=== PATIENT | female | born 1955 | race Caucasian/White ===

== ENCOUNTER 2023-10-10 06:13 | Inpatient (IN) ==
--- NOTE | 2023-09-20 09:25 | PAT Medication Instructions ---
Medication Instructions Date of Service September 20, 2023 Home Medications alprazolam 0.25 mg tablet 0.25 mg PO HS ascorbic acid (vitamin C) 500 mg tablet (Vitamin C) 500 mg PO QAM atorvastatin 10 mg tablet 10 mg PO HS calcium carbonate 600 mg calcium (1,500 mg) tablet (Calcium) 600 mg PO QAM magnesium 500 mg tablet 500 mg PO QAM multivitamin 1 tab PO QAM paroxetine HCl 40 mg tablet 40 mg PO HS trazodone 100 mg tablet 100 mg PO HS DO NOT take the morning of surgery ascorbic acid (vitamin C) 500 mg tablet (Vitamin C) 500 mg PO QAM calcium carbonate 600 mg calcium (1,500 mg) tablet (Calcium) 600 mg PO QAM magnesium 500 mg tablet 500 mg PO QAM multivitamin 1 tab PO QAM Take evening before surgery alprazolam 0.25 mg tablet 0.25 mg PO HS atorvastatin 10 mg tablet 10 mg PO HS paroxetine HCl 40 mg tablet 40 mg PO HS trazodone 100 mg tablet 100 mg PO HS Other Notes If you have any questions please call us at [phone] or [phone] or [phone] or [phone]
--- NOTE | 2023-09-20 15:04 | Anesthesiology Consultation ---
Date of Service September 20, 2023 Assessment & Plan (1) Encounter for pre-operative examination: - will need full 01/16/[address] report. Awaiting surgeon ordered medical clearance. Chart Review Chart Review: Pending: Refer to Additional Notes / Consult section and Patient seen in Pre Admission Testing Teaching & Discussion Pre-Anesthesia Teaching/Discussion Notes: Instructed NPO after midnight before surgery, except medications with 15 cc of water. Medication instructions provided according to the PAT guidelines. History Surgery Operation Date: 10/10/23 07:45 Proposed Procedures p L2-L5 Decompression and Fusion, Spinal Cord Monitoring - Brannon Vincent DO Height/Weight Height: 5 ft 1 in Weight: 65 kg Allergies Allergy/AdvReac Type Severity Reaction Status Date / Time No Known Allergies Allergy Verified 09/20/23 09:00 Medications Home Medications Medication Instructions Recorded Confirmed Last Taken alprazolam 0.25 mg tablet 0.25 mg PO 09/20/23 09/20/23 Unknown ascorbic acid (vitamin C) 500 mg 500 mg PO [facility] 09/20/23 09/20/23 Unknown tablet (Vitamin C) atorvastatin 10 mg tablet 10 mg PO 09/20/23 09/20/23 Unknown calcium carbonate 600 mg calcium 600 mg PO [facility] 09/20/23 09/20/23 Unknown (1,500 mg) tablet (Calcium) magnesium 500 mg tablet 500 mg PO [facility] 09/20/23 09/20/23 Unknown multivitamin 1 tab PO [facility] 09/20/23 09/20/23 Unknown paroxetine HCl 40 mg tablet 40 mg PO 09/20/23 09/20/23 Unknown trazodone 100 mg tablet 100 mg PO 09/20/23 09/20/23 Unknown Past Medical History Medical History (Updated 09/20/23 @ 16:25 by Angeline Bruce PA-C) Pulmonary hypertension PASP 30-40 mmHg Nausea and vomiting after administration of anesthetic agent denies needing scop patach Hx of bladder cancer 06/2022, sx only History of COVID-19 04/2022, tested walk in clinic, not hosp; sinus infection>no residual symptoms Hyperlipidemia Anxiety and depression Patient denies h/o stroke, seizures, heart attack, heart failure, DM, HTN, blood clots/DVTs or blood transfusions. Exercise / Class Metabolic Activity II 4-5 Yardwork/Stairs/Walk up hill (denies chest discomfort or shortness of breath with 1 FOS) Past Surgical History Surgical History (Updated 09/20/23 @ 15:29 by Angeline Bruce PA-C) History of appendectomy History of lumpectomy of left breast x2>both times benign History of laparotomy x4, for ruptured ectopic -removed appendix with 1 sx. Hx of colonoscopy History of transurethral resection of bladder tumor (TURBT) 06/2022 Past Anesthesia History No Hx of Anesthesia Complications and No Family Hx of Anesthesia Complications History of PONV No Hx of Motion Sickness and History of PONV (denies needing scop patch) Social History Smoking Status: Former smoker Do You Dip or Chew Tobacco: No Smoking End Date: years ago Hx Alcohol Use: Yes Alcohol type: beer alcohol intake frequency: holidays/special occasions only Hx Substance Use: No substance use type: does not use Review of Systems Snoring, denies witnessed apneas. Patient denies chest pain, shortness of breath, dyspnea on exertion, fever, chills, cough, wheezing, or palpitations. Physical Exam Vital Signs Vitals BP 113/73 P 59 TEMP 98.7 SP02 96% on RA RESP 17 Physical Patient resting comfortably in chair in no acute distress, alert and oriented, responding appropriately throughout visit Full cervical extension range of motion without pain TMD 3.5 finger breadths Mallampati Score 2 Dentition: two crowns, denies chipped or loose teeth, caps, implants or bridges Lungs: normal respiratory effort. Good air movement, clear throughout to auscultation, no adventitious breath sounds Cardiac: regular rate and rhythm, no murmurs noted Carotid arteries: negative bruit bilat Lab Results Anesthesia Preop Results Results Anesthesia Widget: WBC 5.02 K/ul (4.8-10.8) 09/20/23 Hgb 13.0 g/dl (12.0-16.0) 09/20/23 Hct 38.8 % (37.0-47.0) 09/20/23 Plt 226 K/uL (130-400) 09/20/23 Na 137 mmol/L (136-145) 09/20/23 K 3.8 mmol/L (3.5-5.1) 09/20/23 Cl 105 mmol/L (98-107) 09/20/23 CO2 27 mmol/L (21-32) 09/20/23 BUN 18 mg/dl (6-23) 09/20/23 Creat 0.71 mg/dl (0.6-1.2) 09/20/23 Glucose Level 98 mg/dl (70-99(Fasting)) 09/20/23 PT 10.3 Seconds (9.0-12.0) 09/20/23 PTT 27 Seconds (21-31) 09/20/23 INR 0.9 (0.9-1.1) 09/20/23 Urine Color Yellow 09/20/23 Urine Appearance Clear (Clear) 09/20/23 Urine pH 6.5 (4.5-7.5) 09/20/23 Urine Specific [place] 1.016 (1.000-1.030) 09/20/23 Urine Protein Negative (Negative) 09/20/23 Urine Glucose (UA) Negative (Negative) 09/20/23 Urine Ketones Negative (Negative) 09/20/23 Urine Blood 2+ (Negative) H 09/20/23 Urine Nitrite Negative (Negative) 09/20/23 Urine Bilirubin Negative (Negative) 09/20/23 Urine Urobilinogen Negative (Negative) 09/20/23 Urine Leukocyte Esterase Negative (Negative) 09/20/23 Urine WBC (Auto) 0 /hpf (0-5) 09/20/23 Urine RBC (Auto) 10-30 /hpf (0-4) H 09/20/23 Urine Hyaline Casts (Auto) 0 /lpf (0-5) 09/20/23 Urine Epithelial Cells (Auto) 0-5 /lpf (0-5) 09/20/23 Urine Bacteria (Auto) Negative (Negative) 09/20/23 Blood Type B Positive 09/20/23 Antibody Screen NEGATIVE 09/20/23 Testing Electrocardiogram Date: 10/31/22 Sinus bradycardia, rate 57 bpm Echocardiogram Date: 11/14/22 EF 55% Normal LV wall motion Mild cLVH Mild mitral regurgitation Grade I diastolic dysfunction Elevated PASP at 30-40 mmHG Stress Test Date: 11/15/22 Exercise MPHR 98% METS 7 Negative exercise stress test for ischemia
[~2023-10-10 06:13] MED LIST: ACETAMINOPHEN 500 MG TAB PO SCH; CeleBREX 200 MG CAP PO SCH; GABAPENTIN 300 MG CAP PO SCH; LR 15ML/HR IV SCH; LR 60ML/HR IV SCH; ceFAZolin 2000MG 2,000 MG/15 ML SYR IV SCH
[2023-10-10] MEDS ORDERED: BUPIVACAINE/EPINEPHRINE 0.5% MPF 1:200,000 30 ML VIAL ONE (07:05)
[2023-10-10] MEDS ORDERED: ceFAZolin 330 MG/ML 1 GM VIAL ONE (07:05)
[2023-10-10] MEDS ORDERED: MIDAZOLAM HCL 1 MG/ML 2ML VIAL ONE (07:07)
[2023-10-10] MEDS ORDERED: fentaNYL citrate PF 100 MCG/2 ML VIAL ONE ×2 (07:07→08:44)
[2023-10-10] MEDS ORDERED: LIDOCAINE 2% 2 ML VIAL/AMP(20MG/ML) INFIL ONE (07:08)
[2023-10-10] MEDS ORDERED: ONDANSETRON INJ 2 MG/ML 2 ML VIAL ONE (07:08)
[2023-10-10] MEDS ORDERED: DEXAMETHASONE SOD INJ 4 MG/ML VIAL ONE (07:08)
[2023-10-10] MEDS ORDERED: PROPOFOL IV EMULSION 10 MG/ML 20 ML VIAL IV ONE (07:08)
[2023-10-10] MEDS ORDERED: ONDANSETRON INJ 2 MG/ML 2 ML VIAL IV PRN ×2 (07:16→13:21)
[2023-10-10] MEDS ORDERED: ATROPINE SULFATE 0.1 MG/ML 10ML SYR IV PRN (07:16)
[2023-10-10] MEDS ORDERED: PROMETHAZINE HCL 12.5 MG in SODIUM CHLORIDE 0.9% 50 ML IV PRN ×2 (07:16→13:21)
[2023-10-10] MEDS ORDERED: HYDROmorphone INJ 2 MG/ML SYR/VIAL IV PRN (07:16)
[2023-10-10] MEDS ORDERED: ePHEDrine sulfate 50 MG/ML AMP IV PRN (07:16)
--- NOTE | 2023-10-10 07:58 | History & Physical Bridge Note ---
Date of Service October 10, 2023 History & Physical Bridge Note I have examined the patient, reviewed the History & Physical and in the interval since the performance of the History & Physical I have noted the following changes of clinical significance: no changes noted
--- NOTE | 2023-10-10 07:59 | History & Physical Report ---
Date of Service October 10, 2023 Assessment & Plan (1) Neurogenic claudication due to lumbar spinal stenosis: Plan: L2-L5 decompression and fusion History of Present Illness Chief Complaint: Back and bilateral leg pain Primary Care Provider: Gregorio Jaeger MD This is a 68-year-old female presents chronic system back and bilateral leg pain and failing conservative course of nonoperative care is here for surgical invention. Allergies Allergy/AdvReac Type Severity Reaction Status Date / Time No Known Allergies Allergy Verified 10/10/23 06:36 Home Medications Medication Instructions Recorded Confirmed Type alprazolam 0.25 mg tablet 0.25 mg PO HS 09/20/23 10/10/23 History ascorbic acid (vitamin C) 500 mg 500 mg PO QAM 09/20/23 10/10/23 History tablet (Vitamin C) atorvastatin 10 mg tablet 10 mg PO HS 09/20/23 10/10/23 History calcium carbonate 600 mg calcium 600 mg PO QAM 09/20/23 10/10/23 History (1,500 mg) tablet (Calcium) magnesium 500 mg tablet 500 mg PO QAM 09/20/23 10/10/23 History multivitamin 1 tab PO QAM 09/20/23 10/10/23 History paroxetine HCl 40 mg tablet 40 mg PO HS 09/20/23 10/10/23 History trazodone 100 mg tablet 100 mg PO HS 09/20/23 10/10/23 History Past Med/Surg History Medical History (Updated 10/10/23 @ 07:58 by Brannon Vincent DO) Pulmonary hypertension PASP 30-40 mmHg Nausea and vomiting after administration of anesthetic agent denies needing scop patach Hx of bladder cancer 06/2022, sx only History of COVID-19 04/2022, tested walk in clinic, not hosp; sinus infection>no residual symptoms Hyperlipidemia Anxiety and depression Surgical History History of appendectomy History of lumpectomy of left breast x2>both times benign History of laparotomy x4, for ruptured ectopic -removed appendix with 1 sx. Hx of colonoscopy History of transurethral resection of bladder tumor (TURBT) 06/2022 Social History Smoking Status: Former smoker Tobacco Type: Cigarettes Smoking End Date: years ago; Second Hand Exposure: No; Do You Dip or Chew Tobacco: No; Tobacco Cessation Education Requested by Patient: No Hx Alcohol Use: Yes Alcohol type: beer Hx Substance Use: No Preferred Language: Albanian Communication Ability: Effective Information Coder Required: No Beliefs That Will Affect Care: None Current Living Situation: Spouse Other Information That Helps Us Care for You: No Feels Safe at Home: Yes Safety Concerns: Feels Safe At This Time Assistive Devices: Glasses Physical Exam Physical Exam: Patient is alert and oriented Heart regular rhythm Lungs clear Results & Data Results & Data Vital Signs (Past 12 Hours) Vital Signs Temp Pulse Resp BP Pulse Ox O2 Del Method 10/10/23 06:40 36.8 C 59 L 18 132/77 99 Room Air
[2023-10-10] MEDS ORDERED: ROCURONIUM BROMIDE 10 MG/ML 5 ML VIAL IV ONE (08:36)
[2023-10-10] MEDS ORDERED: ePHEDrine sulfate 50 MG/5 ML SYR ONE (08:36)
[2023-10-10] MEDS ORDERED: diphenhydrAMINE 50 MG/ML VIAL ONE (08:44)
[2023-10-10] MEDS ORDERED: FLOSEAL HEMOSTATIC MATRIX 10ML TOP ONE (09:35)
[2023-10-10] MEDS ORDERED: SUGAMMADEX SODIUM 200 MG/2 ML VIAL IV ONE (10:01)
--- NOTE | 2023-10-10 10:15 | Operative Report ---
Post Operative Report Pre & Post Diagnosis Operation Date: 10/10/23 07:45 Pre-Op Diagnosis: Neurogenic Claudication due to Lumbar Spinal Stenosis Post-Op Diagnosis: Neurogenic Claudication due to Lumbar Spinal Stenosis I identified the patient and participated in the time-out.: Yes Procedure Operation Date: 10/10/23 07:45 Actual Procedures Lumbar decompression bilateral medial facetectomies and foraminotomies L1-L2, L2-L3, L3-L4 and L4-L5. #2 posterior spinal fusion L2-L5. #3 placed posterior segmental instrumentation L2-L5. #4 interbody fusion L3-L4 L4-5 per #5 placement Spira 12 x 26 mm at L3-L4 and 12 x 26 mm at L4-5. #6 placement locally harvested morselized autograft and posterior gutters. #7 placement of infuse collagen sponge, with Koros in the posterior lateral gutters and Morpheus bone graft interbody space. Surgeon Brannon Vincent, Med Specialist Racheal Peralta Estimated Blood Loss 300 Findings Consistent with Post-Op Diagnosis Specimens None Indications This is a 68-year-old female who presents above-mentioned diagnosis after failed course of nonoperative care is here for surgical invention. Description of Procedure Patient was met with identified informed consent obtained. Patient was then taken to the operative suite underwent patient placed in a prone position the Edgard table top Aldo frame. All bony prom prominences well-padded eyes inspected to ensure no external pressure placed upon them. This point lumbar spine is prepped draped no sterile fashion. Sharp dissection with assistance of Bovie cautery from down to and exposing the lamina transverse processes of L2 L3-L4-L5 bilaterally from a caudal cephalad fashion complete laminectomy of L4 L3 L2 partial laminectomy L1 was performed including bilateral medial facetectomies and foraminotomies addressing severe spinal stenosis. Pedicle screws then placed in L2-L3 L4-5 bilaterally with assistance of fluoroscopy and the purposes stevan contoured and placed. By way of a trans foraminal approach on the right a complete discectomy of L4-5 was performed endplates guided to subcortical bleeding bone and a 12 x 26 mm Spira cage with Morpheus tapped in position. Then proceeded to L3-L4 and again by way of transfer and approach on the left complete discectomy performed endplates guided to subcortical bleeding bone and a 12 x 26 mm Spira cage with I factor tapped in position. The rods were then locked in final position bilaterally. The transverse processes of L2-L3-L4 and 5 burred to subcortical bleeding bone. Infuse collagen sponge combined with Koros and locally harvested morselized autograft placed in posterior gutters. 15 round CRISTAL drain inserted. The incision was then closed with 1 Vicryl the fascia 2-0 Vicryl subcutaneously and 4 Monocryl for final skin closure. Steri-Strips sterile dressing placed. Patient waken taken to PACU stable condition. Please note spinal cord monitoring was utilized at the procedure no changes noted. Lastly Racheal Peralta was present at the entire surgery and while the patient positioning complex portion of the surgery and fascial closure. I attest to the content of the Intraoperative Record and any orders documented therein. Any exceptions are noted below.
--- NOTE | 2023-10-10 11:05 | Fluoroscopy Report ---
FL lumbar spine 2-3V CLINICAL HISTORY: L2-L5 DECOMP/FUSION COMPARISON STUDY: None. FLUOROSCOPY TIME: 27 seconds. Ka, r: 20.18 mGy FLUOROSCOPIC IMAGES: 4 FINDINGS: Fluoroscopy was provided during posterior decompression with L3-L4 and L4-L5 discectomies w ith interbody spacer placement. Bilateral pleural screws at the L2, L3, L4 and L5 levels are present. Hardware is intact. IMPRESSION: Fluoroscopy provided during L2-L5 decompression and fusion with L3-L4 and L4-L5 discecto mies. ACT 112: Negative or not required by law. Electronically signed by: Parker Bravo M.D. 10/10/2023 11:04 AM
[2023-10-10] MEDS: fentaNYL citrate PF 100 MCG/2 ML VIAL IV PRN ×3 (11:14→12:20)
[2023-10-10] MEDS ORDERED: ACETAMINOPHEN 1,000 MG/100 ML VIAL IV STA (12:18)
[2023-10-10] MEDS ORDERED: KETOROLAC TROMETHAMINE 15 MG/ML VIAL IV ONE (12:19)
[2023-10-10] MEDS ORDERED: ACETAMINOPHEN 1000 MG/100 ML IV IV ONE (12:24)
[2023-10-10] MEDS: KETOROLAC 30 MG/ML VIAL ONE ×2 (12:28→12:36)
[2023-10-10] MEDS ORDERED: KETOROLAC 30 MG/ML VIAL IV ONE (12:30)
[2023-10-10] MEDS ORDERED: DO NOT ADMINISTER PNEUMOCOCCAL VACCINE PRN (13:21)
[2023-10-10] MEDS ORDERED: ONDANSETRON 4 MG OD TAB PO PRN (13:21)
[2023-10-10] MEDS ORDERED: MAGNESIUM HYDROXIDE SUSP 30 ML UDC PO PRN (13:21)
[2023-10-10] MEDS ORDERED: SOD PHOSPHATE/SOD BIPHOSPHATE ENEMA 132 ML BTL PR PRN (13:21)
[2023-10-10] MEDS ORDERED: ACETAMINOPHEN 500 MG TAB PO PRN (13:21)
[2023-10-10] MEDS ORDERED: hydrOXYzine HCl 25 MG TAB PO PRN (13:21)
[2023-10-10] MEDS ORDERED: bisacodyL 10 MG SUPP PR PRN (13:21)
[2023-10-10] MEDS ORDERED: FAMOTIDINE 20 MG TAB PO PRN (13:21)
[2023-10-10] MEDS ORDERED: LORazepam 0.5 MG in SYRINGE 0.25 ML IV PRN (13:21)
[2023-10-10] MEDS ORDERED: NALOXONE HCL 0.4 MG/1 ML VIAL/CARP IV PRN (13:21)
[2023-10-10] MEDS ORDERED: ALUMINUM/MAGNESIUM SUSP 30 ML UDC PO PRN (13:21)
[2023-10-10] MEDS ORDERED: DO NOT ADMINISTER FLU VACCINE PRN (13:21)
[2023-10-10] MEDS ORDERED: ACETAMINOPHEN 1,000 MG/100 ML VIAL IV PRN (13:21)
[2023-10-10] MEDS ORDERED: METOCLOPRAMIDE HCL INJ 5 MG/ML 2 ML VIAL IV PRN (13:21)
--- NOTE | 2023-10-10 13:56 | Consultation ---
Date of Consultation October 10, 2023 Assessment & Plan (1) S/P spinal surgery: (2) Neurogenic claudication due to lumbar spinal stenosis: Post op day# 0 S/P L1-L5 decompression and fusion by Dr Vincent EBL#[id number] Pain management per ortho Wound management per ortho PT/OT as appropriate DVT prophylaxis per ortho Incentive spirometry Monitor H&H for acute blood loss anemia, pre-op Hgb: 13 (3) Hyperlipidemia: Continue atorvastatin (4) Anxiety and depression: Continue paroxetine, trazodone Hold alprazolam currently while on other pain medications DVT Prophylaxis SCDs Disposition per primary service Follows with Dr Jaeger in [place] for routine care Pt was seen and care coordinated with Dr Robison. See addendum Thank you for this consultation. We will follow the patient with you during their hospital stay. You can reach a [facility] of the [facility]/04 via [facility] Supervising Physician Co-Signing Physician Notes I have seen and examined the patient and have discussed the case with the provider above. I agree with the assessment and plan as stated. 68 yo F post operatively has just taken pain medications and is lethargic, unable to perform ROS. Her family is at the bedside. VSS and physical exam was unremarkable. CRISTAL drain, [place], SCDs in place. She is requiring a small amount of oxygen via nasal canula. Med rec performed. Cont per recommendations above. Thank you for this consultation. DO Ricki History of Present Illness Requesting Physician: Dr Vincent Reason for Consultation: Post op medical consultation Attending Physician: Brannon Vincent DO History of Present Illness Patient is 68 y/o F with PMH HLD, anxiety, depression, pulmonary hypertension, bladder cancer s/p surgery seen in medical consultation s/p L1-L5 decompression and fusion by Dr Vincent today. Post op patient reports low back pain. States last BM this morning. Currently has Austin catheter in place. Denies fever/chills, N/V/D, BENOIT, dizziness, CP, SOB, cough, rhinorrhea, abdominal pain, paresthesias, weakness, extremity edema, rashes, urinary symptoms. Allergies Allergy/AdvReac Type Severity Reaction Status Date / Time No Known Allergies Allergy Verified 10/10/23 06:36 Home Medications Medication Instructions Recorded Confirmed Type alprazolam 0.25 mg tablet 0.25 mg PO HS 09/20/23 10/10/23 History ascorbic acid (vitamin C) 500 mg 500 mg PO QAM 09/20/23 10/10/23 History tablet (Vitamin C) atorvastatin 10 mg tablet 10 mg PO HS 09/20/23 10/10/23 History calcium carbonate 600 mg calcium 600 mg PO QAM 09/20/23 10/10/23 History (1,500 mg) tablet (Calcium) magnesium 500 mg tablet 500 mg PO QAM 09/20/23 10/10/23 History multivitamin 1 tab PO QAM 09/20/23 10/10/23 History paroxetine HCl 40 mg tablet 40 mg PO HS 09/20/23 10/10/23 History trazodone 100 mg tablet 100 mg PO HS 09/20/23 10/10/23 History Patient History Medical History (Updated 10/10/23 @ 13:56 by Melissa Stewart PA-C) Pulmonary hypertension PASP 30-40 mmHg Nausea and vomiting after administration of anesthetic agent denies needing scop patach Hx of bladder cancer 06/2022, sx only History of COVID-19 04/2022, tested walk in clinic, not hosp; sinus infection>no residual symptoms Hyperlipidemia Anxiety and depression Surgical History (Updated 10/10/23 @ 13:56 by Melissa Stewart PA-C) History of appendectomy History of lumpectomy of left breast x2>both times benign History of laparotomy x4, for ruptured ectopic -removed appendix with 1 sx. Hx of colonoscopy History of transurethral resection of bladder tumor (TURBT) 06/2022 Social History Smoking Status: Former smoker Tobacco Type: Cigarettes Smoking End Date: years ago; Second Hand Exposure: No; Do You Dip or Chew Tobacco: No; Tobacco Cessation Education Requested by Patient: No Hx Alcohol Use: Yes Alcohol type: beer Hx Substance Use: No Preferred Language: Honduran Communication Ability: Effective [employer] Shearer Required: No Beliefs That Will Affect Care: None Current Living Situation: Spouse Other Information That Helps Us Care for You: No Feels Safe at Home: Yes Safety Concerns: Feels Safe At This Time Assistive Devices: Glasses Review of Systems Review of Systems: All systems reviewed & are unremarkable except as noted in HPI & below Physical Exam Physical Exam: General: mild distress secondary to back pain, WDWN Head: normocephalic, atraumatic Eyes: conjunctiva non-injected, anicteric ENT: normal inspection external ears, nose, mucous membranes moist Neck: supple, trachea midline Lungs: clear, no respiratory distress, no wheezing/rhonchi/rales CV: RRR, no murmur, no pretibial edema Abd: normal BS, soft, non-tender Back: +CRISTAL drain with serosanguineous drainage Ext: no cyanosis, no calf tenderness; pedal pushes and pulls intact bilaterally, sensation to light touch intact Neuro: Drowsy but awake and oriented x 3, no focal deficits noted, normal affect Skin: warm, dry Results & Data Vital Signs (Past 12 Hours) Vital Signs Temp Pulse Pulse Resp BP Pulse Ox O2 Del Method 10/10/23 13:44 36.5 C 60 18 111/71 100 Nasal Cannula 10/10/23 13:00 58 L 10 L 128/75 97 Nasal Cannula 10/10/23 12:50 57 L 11 L 126/73 98 Nasal Cannula 10/10/23 12:40 56 L 11 L 136/82 100 Nasal Cannula 10/10/23 12:30 36.4 C L 61 12 127/87 96 Nasal Cannula 10/10/23 12:20 70 24 135/71 96 Nasal Cannula 10/10/23 12:10 67 12 142/82 H 96 Oxymask 10/10/23 12:00 76 20 123/89 96 Oxymask 10/10/23 11:50 76 15 140/81 94 Oxymask 10/10/23 11:40 81 11 L 156/87 H 96 Oxymask 10/10/23 11:30 82 12 141/87 H 95 Oxymask 10/10/23 11:20 74 12 136/86 94 Oxymask 10/10/23 11:10 81 12 146/87 H 98 Oxymask 10/10/23 11:00 85 16 153/86 H 94 Oxymask 10/10/23 10:50 86 18 131/81 97 Oxymask 10/10/23 10:40 85 18 127/76 99 Oxymask 10/10/23 10:33 36.2 C L 86 18 114/71 95 Oxymask 10/10/23 06:40 36.8 C 59 L 18 132/77 99 Room Air O2 Flow Rate 10/10/23 13:44 2 10/10/23 13:00 2 10/10/23 12:50 2 10/10/23 12:40 2 10/10/23 12:30 2 10/10/23 12:20 2 10/10/23 12:10 8 10/10/23 12:00 8 10/10/23 11:50 8 10/10/23 11:40 8 10/10/23 11:30 8 10/10/23 11:20 8 10/10/23 11:10 4 10/10/23 11:00 4 10/10/23 10:50 4 10/10/23 10:40 6 10/10/23 10:33 6 10/10/23 06:40
[2023-10-10] MEDS: LACTATED RINGER'S 1,000 ML IV SCH ×2 (14:00→20:34)
[2023-10-10] MEDS: HYDROmorphone INJ 0.5 MG/0.5 ML SYR IV PRN (14:00)
--- NOTE | 2023-10-10 14:21 | Anesthesiology Progress Note ---
Date of Service October 10, 2023 Anesthesia Post Procedure Vital Signs Vital Signs: Temp Pulse Pulse Resp BP Pulse Ox O2 Del Method 10/10/23 14:13 36.6 C 63 17 106/67 99 Nasal Cannula 10/10/23 13:44 36.5 C 60 18 111/71 100 Nasal Cannula 10/10/23 13:00 58 L 10 L 128/75 97 Nasal Cannula 10/10/23 12:50 57 L 11 L 126/73 98 Nasal Cannula 10/10/23 12:40 56 L 11 L 136/82 100 Nasal Cannula 10/10/23 12:30 36.4 C L 61 12 127/87 96 Nasal Cannula 10/10/23 12:20 70 24 135/71 96 Nasal Cannula 10/10/23 12:10 67 12 142/82 H 96 Oxymask 10/10/23 12:00 76 20 123/89 96 Oxymask 10/10/23 11:50 76 15 140/81 94 Oxymask 10/10/23 11:40 81 11 L 156/87 H 96 Oxymask 10/10/23 11:30 82 12 141/87 H 95 Oxymask 10/10/23 11:20 74 12 136/86 94 Oxymask 10/10/23 11:10 81 12 146/87 H 98 Oxymask 10/10/23 11:00 85 16 153/86 H 94 Oxymask 10/10/23 10:50 86 18 131/81 97 Oxymask 10/10/23 10:40 85 18 127/76 99 Oxymask 10/10/23 10:33 36.2 C L 86 18 114/71 95 Oxymask 10/10/23 06:40 36.8 C 59 L 18 132/77 99 Room Air O2 Flow Rate 10/10/23 14:13 2 10/10/23 13:44 2 10/10/23 13:00 2 10/10/23 12:50 2 10/10/23 12:40 2 10/10/23 12:30 2 10/10/23 12:20 2 10/10/23 12:10 8 10/10/23 12:00 8 10/10/23 11:50 8 10/10/23 11:40 8 10/10/23 11:30 8 10/10/23 11:20 8 10/10/23 11:10 4 10/10/23 11:00 4 10/10/23 10:50 4 10/10/23 10:40 6 10/10/23 10:33 6 10/10/23 06:40 Pain Intensity Lower Back: Pain Intensity: 6 Transfer of Care Handoff Completed per policy Notes Mental Status: alert / awake / arousable Patient Amnestic to Procedure: Yes Nausea / Vomiting: adequately controlled Pain: adequately controlled Airway Patency, RR, SpO2: stable & adequate BP & HR: stable & adequate Hydration State: stable & adequate Anesthetic Complications: no major complications apparent
[2023-10-10] MEDS: oxyCODONE HCL IR 5 MG TAB (IMMEDIATE RELEASE) PO PRN ×2 (15:42→23:23)
[2023-10-10] MEDS: ceFAZolin 1000MG 1,000 MG/7.5 ML SYR IV SCH ×2 (16:37→23:55)
[2023-10-10] MEDS: HYDROmorphone INJ 1 MG/ML SYRINGE IV PRN (17:53)
[2023-10-10] MEDS: traZODone HCL 100 MG TAB PO SCH (20:28)
[2023-10-10] MEDS: ATORVASTATIN 10 MG TAB PO SCH (20:28)
[2023-10-10] MEDS: PARoxetine HCL 20 MG TAB PO SCH (20:29)
[2023-10-10] MEDS: DOCUSATE SODIUM/SENNA 50/8.6MG TAB PO SCH (20:29)
[2023-10-11] MEDS: HYDROmorphone INJ 1 MG/ML SYRINGE IV PRN ×3 (02:16→10:17)
[2023-10-11] MEDS: POLYETHYLENE (MIRALAX) 17 GM PACK PO SCH ×4 (05:27→23:10)
[2023-10-11] MEDS: oxyCODONE HCL IR 5 MG TAB (IMMEDIATE RELEASE) PO PRN ×3 (05:27→18:31)
[2023-10-11] MEDS: dexAMETHasone 6 MG in SYRINGE 0 ML IV SCH (07:52)
[2023-10-11] MEDS: CALCIUM CARBONATE 1250MG TAB PO SCH (08:11)
[2023-10-11] MEDS: MAGNESIUM OXIDE 400 MG TAB PO SCH (08:11)
[2023-10-11] MEDS: ASCORBIC ACID 500 MG TAB PO SCH (08:11)
[2023-10-11 08:15] LABS: Basophils # (auto) 0.02 K/uL (0.00-0.20); Basophils % (auto) 0.2 %; Eosinophils # (auto) 0.02 K/uL (0.00-0.50); Eosinophils % (auto) 0.2 %; Hematocrit (blood only) 28.2 % (37.0-47.0); Hemoglobin 9.4 g/dl (12.0-16.0); Immature Granulocytes # (auto) 0.03 K/uL (0.01-0.20); Immature Granulocytes % (auto) 0.4 %; Lymphocytes # (auto) 2.81 K/uL (1.20-3.40); Lymphocytes % (auto) 33.4 %; Mean Corpuscular Hemoglobin 32.2 pg (25.0-34.0); Mean Corpuscular Hgb Conc 33.3 g/dL (32.0-36.0); Mean Corpuscular Volume 96.6 fL (80.0-100.0); Mean Platelet Volume 9.3 fL (9.4-12.4); Monocytes # (auto) 0.51 K/uL (0.11-0.59); Monocytes % (auto) 6.1 %; Neutrophils # (auto) 5.02 K/uL (1.40-6.50); Neutrophils % (auto) 59.7 %; Platelet Count 167 K/uL (130-400); RDW Coefficient of Variation 13.2 % (11.5-14.5); RDW Standard Deviation 47.1 fL (36.4-46.3); Red Blood Count 2.92 M/uL (4.20-5.40); White Blood Count 8.41 K/ul (4.8-10.8)
--- NOTE | 2023-10-11 08:31 | Orthopedic Progress Note ---
Date of Service October 11, 2023 Assessment & Plan (1) Neurogenic claudication due to lumbar spinal stenosis: Plan: This time initiate physical therapy monitor CRISTAL output hopefully discharge home this weekend. Admission and Anticipated Discharge Date Admission Date: October 10, 2023 Subjective Patient complaining of back spasms. Leg pain improved. Physical Exam Physical Exam: Patient has good strength testing. She is struggling with back pain this morning. Results & Data Vital Signs (Past 12 Hours) Vital Signs Temp Pulse Resp BP Pulse Ox O2 Del Method O2 Flow Rate 10/11/23 07:33 37.0 C 56 L 22 113/70 100 Nasal Cannula 2 10/11/23 02:26 37.2 C 61 16 98/51 L 97 Nasal Cannula 3 10/10/23 23:26 37 C 69 18 105/66 94 Nasal Cannula 3
[2023-10-11] MEDS ORDERED: KETOROLAC TROMETHAMINE 15 MG/ML VIAL IV PRN (08:36)
[2023-10-11 08:42] LABS: BUN Creatinine Ratio 13.7 (10-20); Calcium 9.3 mg/dl (8.6-10.3); Creatinine Clr Calc Pharmacy 65.3 ml/min; Est GFR (African American) 98.8 ml/min; Est GFR (Non-African American) 85.2 ml/min; Potassium 3.7 mmol/L (3.5-5.1)
[2023-10-11] MEDS ORDERED: KETOROLAC TROMETHAMINE 15 MG/ML VIAL IV ONE (08:45)
[2023-10-11] MEDS: diphenhydrAMINE Capsule 25 MG CAP PO PRN ×2 (09:51→18:31)
[2023-10-11] MEDS: CYCLOBENZAPRINE HCL 10 MG TAB PO PRN ×2 (11:09→20:55)
--- NOTE | 2023-10-11 16:27 | Hospitalist Progress Note ---
Date of Service October 11, 2023 Assessment & Plan (1) S/P spinal surgery: (2) Neurogenic claudication due to lumbar spinal stenosis: Plan: Acute blood loss anemia Post op day# 1 S/P L1-L5 decompression and fusion by Dr Melisa ODONNELL#300ml Pain management per ortho Wound management per ortho PT/OT as appropriate DVT prophylaxis per ortho Incentive spirometry Monitor H&H for acute blood loss anemia, pre-op Hgb: 13, hgb down to 9.4 today Will continue to monitor (3) Hyperlipidemia: Plan: Continue atorvastatin (4) Anxiety and depression: Plan: Continue paroxetine, trazodone Hold alprazolam currently while on other pain medications Ativan ordered per primary team Diet: Regular DVT Prophylaxis: SCDs Dispo: per primary service Thank you for this consultation. We will follow the patient with you during their hospital stay. You can reach a [facility] via [email or web address] Admission and Anticipated Discharge Date Admission Date: October 10, 2023 Subjective Pt was seen with daughter at bedside. Per daughter, pt has been somnolent and sleeping all day. States that she finally got comfortable after Atuvan and Flexeril given in the AM for 10/10 pain and muscle spasms. Stated that she wanted to let her sleep. Review of Systems Review of Systems: Unobtainable due to reduced consciousness Physical Exam Physical Exam: General: somnolent Psych: could not be determined Neuro: drowsy, responds to comands with physical touch HEENT: NC/AT CV: RRR Resp: Breath sounds clear bilaterally, no increased effort of breathing. Abdomen: Soft, nontender, nondistended. Extremities:SCDs on lower extremities bilaterally. Results & Data Results & Data Vital Signs (Past 12 Hours) Vital Signs Temp Pulse Resp BP Pulse Ox O2 Del Method O2 Flow Rate 10/11/23 15:34 37.1 C 53 L 16 86/41 L 97 Nasal Cannula 2 10/11/23 12:17 14 94 Nasal Cannula 2 10/11/23 11:18 14 96 Nasal Cannula 2 10/11/23 11:05 37.1 C 58 L 18 124/75 99 Nasal Cannula 2 10/11/23 07:33 37.0 C 56 L 22 113/70 100 Nasal Cannula 2
[2023-10-11] MEDS: PARoxetine HCL 20 MG TAB PO SCH (20:26)
[2023-10-11] MEDS: DOCUSATE SODIUM/SENNA 50/8.6MG TAB PO SCH (20:27)
[2023-10-11] MEDS: ATORVASTATIN 10 MG TAB PO SCH (20:27)
[2023-10-11] MEDS: traZODone HCL 100 MG TAB PO SCH (20:27)
[2023-10-11] MEDS: HYDROmorphone INJ 0.5 MG/0.5 ML SYR IV PRN (20:55)
[2023-10-12] MEDS: oxyCODONE HCL IR 5 MG TAB (IMMEDIATE RELEASE) PO PRN ×4 (05:14→23:44)
[2023-10-12] MEDS: POLYETHYLENE (MIRALAX) 17 GM PACK PO SCH ×4 (05:15→23:44)
[2023-10-12] MEDS: ASCORBIC ACID 500 MG TAB PO SCH (07:20)
[2023-10-12] MEDS: MAGNESIUM OXIDE 400 MG TAB PO SCH (07:20)
[2023-10-12] MEDS: diphenhydrAMINE Capsule 25 MG CAP PO PRN ×2 (07:20→15:52)
[2023-10-12] MEDS: dexAMETHasone 6 MG in SYRINGE 0 ML IV SCH (07:21)
[2023-10-12] MEDS: CALCIUM CARBONATE 1250MG TAB PO SCH (07:21)
[2023-10-12] MEDS: CYCLOBENZAPRINE HCL 10 MG TAB PO PRN ×2 (07:24→15:52)
[2023-10-12 07:39] LABS: Hematocrit (blood only) 27.5 % (37.0-47.0); Hemoglobin 9.2 g/dl (12.0-16.0); Mean Corpuscular Hemoglobin 31.9 pg (25.0-34.0); Mean Corpuscular Hgb Conc 33.5 g/dL (32.0-36.0); Mean Corpuscular Volume 95.5 fL (80.0-100.0); Mean Platelet Volume 9.8 fL (9.4-12.4); Platelet Count 177 K/uL (130-400); RDW Coefficient of Variation 12.9 % (11.5-14.5); RDW Standard Deviation 45.2 fL (36.4-46.3); Red Blood Count 2.88 M/uL (4.20-5.40); White Blood Count 6.89 K/ul (4.8-10.8)
[2023-10-12 08:07] LABS: BUN Creatinine Ratio 12.9 (10-20); Calcium 9.7 mg/dl (8.6-10.3); Creatinine Clr Calc Pharmacy 68.1 ml/min; Est GFR (African American) 103.9 ml/min; Est GFR (Non-African American) 89.7 ml/min; Potassium 4.2 mmol/L (3.5-5.1)
--- NOTE | 2023-10-12 09:37 | Orthopedic Progress Note ---
Date of Service October 12, 2023 Assessment & Plan (1) Neurogenic claudication due to lumbar spinal stenosis: Plan: This time initiate physical therapy monitor her CRISTAL output anticipate discharge home later after this weekend. Admission and Anticipated Discharge Date Admission Date: October 10, 2023 Subjective Back pain markedly improved today. Leg pain improved. Physical Exam Physical Exam: Patient is seen with bedside appears comfortable. Discussed when to testing. Results & Data Vital Signs (Past 12 Hours) Vital Signs Temp Pulse Resp BP Pulse Ox O2 Del Method O2 Flow Rate 10/12/23 07:25 Nasal Cannula 10/12/23 07:12 37.1 C 66 16 116/69 92 Nasal Cannula 2
--- NOTE | 2023-10-12 13:36 | Hospitalist Progress Note ---
Date of Service October 12, 2023 Assessment & Plan (1) S/P spinal surgery: (2) Neurogenic claudication due to lumbar spinal stenosis: Plan: Acute blood loss anemia Post op day# 2 S/P L1-L5 decompression and fusion by Dr Melisa ODONNELL#300ml Pain management per ortho, improved Wound management per ortho PT/OT as appropriate DVT prophylaxis per ortho Incentive spirometry Monitor H&H for acute blood loss anemia, pre-op Hgb: 13, hgb stable at 9.2 today Will continue to monitor (3) Hyperlipidemia: Plan: Continue atorvastatin (4) Anxiety and depression: Plan: Continue paroxetine, trazodone Hold alprazolam currently while on other pain medications Ativan ordered per primary team Diet: Regular DVT Prophylaxis: per primary service Dispo: per primary service Thank you for this consultation. We will follow the patient with you during their hospital stay. You can [facility] a [facility] via [employer] Admission and Anticipated Discharge Date Admission Date: October 10, 2023 Subjective Pt was more awake. States that pain currently controlled. Has been passing gas. Otherwise denied acute concerns. Review of Systems Review of Systems: All systems reviewed & are unremarkable except as noted in Subjective Physical Exam Physical Exam: General: Alert, oriented Psych: appropriate mood and affect Neuro: grossly intact except with difficulty with movements HEENT: NC/AT CV: RRR Resp: Breath sounds clear bilaterally, no increased effort of breathing. Abdomen: Soft, nontender, nondistended. Extremities:SCDs on lower extremities bilaterally. Results & Data Results & Data Vital Signs (Past 12 Hours) Vital Signs Temp Pulse Resp BP Pulse Ox O2 Del Method O2 Flow Rate 10/12/23 07:25 Nasal Cannula 10/12/23 07:12 37.1 C 66 16 116/69 92 Nasal Cannula 2
[2023-10-12] MEDS: HYDROmorphone INJ 0.5 MG/0.5 ML SYR IV PRN (15:08)
[2023-10-12] MEDS: HYDROmorphone INJ 1 MG/ML SYRINGE IV PRN (16:53)
[2023-10-12] MEDS: ATORVASTATIN 10 MG TAB PO SCH (19:59)
[2023-10-12] MEDS: PARoxetine HCL 20 MG TAB PO SCH (19:59)
[2023-10-12] MEDS: traZODone HCL 100 MG TAB PO SCH (19:59)
[2023-10-12] MEDS: DOCUSATE SODIUM/SENNA 50/8.6MG TAB PO SCH (20:00)
[2023-10-12] MEDS: traMADol HCL 50 MG TABLET PO PRN (20:00)
[2023-10-13] MEDS: POLYETHYLENE (MIRALAX) 17 GM PACK PO SCH ×4 (05:40→23:30)
[2023-10-13 06:34] LABS: Hematocrit (blood only) 28.7 % (37.0-47.0); Hemoglobin 9.6 g/dl (12.0-16.0); Mean Corpuscular Hemoglobin 32.3 pg (25.0-34.0); Mean Corpuscular Hgb Conc 33.4 g/dL (32.0-36.0); Mean Corpuscular Volume 96.6 fL (80.0-100.0); Mean Platelet Volume 9.8 fL (9.4-12.4); Platelet Count 196 K/uL (130-400); RDW Coefficient of Variation 13.1 % (11.5-14.5); RDW Standard Deviation 46.5 fL (36.4-46.3); Red Blood Count 2.97 M/uL (4.20-5.40); White Blood Count 7.53 K/ul (4.8-10.8)
[2023-10-13] MEDS: traMADol HCL 50 MG TABLET PO PRN (06:43)
[2023-10-13 07:03] LABS: BUN Creatinine Ratio 9.7 (10-20); Calcium 9.6 mg/dl (8.6-10.3); Creatinine Clr Calc Pharmacy 66.2 ml/min; Est GFR (African American) 100.4 ml/min; Est GFR (Non-African American) 86.7 ml/min; Potassium 4.2 mmol/L (3.5-5.1)
[2023-10-13] MEDS: dexAMETHasone 6 MG in SYRINGE 0 ML IV SCH (08:26)
[2023-10-13] MEDS: CALCIUM CARBONATE 1250MG TAB PO SCH (08:26)
[2023-10-13] MEDS: oxyCODONE HCL IR 5 MG TAB (IMMEDIATE RELEASE) PO PRN ×3 (08:26→19:56)
[2023-10-13] MEDS: ASCORBIC ACID 500 MG TAB PO SCH (08:27)
[2023-10-13] MEDS: MAGNESIUM OXIDE 400 MG TAB PO SCH (08:27)
--- NOTE | 2023-10-13 10:04 | Orthopedic Progress Note ---
Date of Service October 13, 2023 Assessment & Plan (1) Neurogenic claudication due to lumbar spinal stenosis: Plan: At this time continue physical therapy monitor CRISTAL output anticipate discharge home tomorrow. Admission and Anticipated Discharge Date Admission Date: October 10, 2023 Subjective Back pain improving leg pain improved Physical Exam Physical Exam: Patient appears comfortable. Is constricted testing. Results & Data Vital Signs (Past 12 Hours) Vital Signs Temp Pulse Resp BP Pulse Ox O2 Del Method 10/13/23 07:21 36.8 C 63 18 104/66 93 Room Air
--- NOTE | 2023-10-13 10:05 | Hospitalist Progress Note ---
Date of Service October 13, 2023 Assessment & Plan (1) S/P spinal surgery: (2) Neurogenic claudication due to lumbar spinal stenosis: Plan: Acute blood loss anemia Post op day#3 S/P L1-L5 decompression and fusion by Dr Melisa ODONNELL#300ml Pain management per ortho, improved Wound management per ortho PT/OT as appropriate DVT prophylaxis per ortho Incentive spirometry Monitor H&H for acute blood loss anemia, pre-op Hgb: 13, hgb stable at 9.6 today Will continue to monitor (3) Hyperlipidemia: Plan: Continue atorvastatin (4) Anxiety and depression: Plan: Continue paroxetine, trazodone Hold alprazolam currently while on other pain medications Ativan ordered per primary team Diet: Regular DVT Prophylaxis: per primary service Dispo: per primary service Thank you for this consultation. We will follow the patient with you during their hospital stay. You can reach a [facility] via [employer] Admission and Anticipated Discharge Date Admission Date: October 10, 2023 Subjective Pt seen with daughter at bedside. Notes improved pain. Passing gas, no BM yet. Trying to get meds through her pharmacy. Review of Systems Review of Systems: All systems reviewed & are unremarkable except as noted in Subjective Physical Exam Physical Exam: General: Alert, oriented Psych: appropriate mood and affect Neuro: grossly intact except with difficulty with movements HEENT: NC/AT CV: RRR Resp: Breath sounds clear bilaterally, no increased effort of breathing. Abdomen: Soft, nontender, nondistended. Extremities: SCDs on lower extremities bilaterally. Results & Data Results & Data Vital Signs (Past 12 Hours) Vital Signs Temp Pulse Resp BP Pulse Ox O2 Del Method 10/13/23 07:21 36.8 C 63 18 104/66 93 Room Air
[2023-10-13] MEDS: LORazepam 0.5 MG TAB PO PRN (13:29)
[2023-10-13] MEDS: diphenhydrAMINE Capsule 25 MG CAP PO PRN (14:44)
[2023-10-13] MEDS: CYCLOBENZAPRINE HCL 10 MG TAB PO PRN (19:56)
[2023-10-13] MEDS: traZODone HCL 100 MG TAB PO SCH (19:58)
[2023-10-13] MEDS: ATORVASTATIN 10 MG TAB PO SCH (19:58)
[2023-10-13] MEDS: PARoxetine HCL 20 MG TAB PO SCH (19:58)
[2023-10-13] MEDS: DOCUSATE SODIUM/SENNA 50/8.6MG TAB PO SCH (19:58)
[2023-10-14] MEDS: POLYETHYLENE (MIRALAX) 17 GM PACK PO SCH (05:32)
[2023-10-14] MEDS: oxyCODONE HCL IR 5 MG TAB (IMMEDIATE RELEASE) PO PRN ×2 (05:43→09:51)
[2023-10-14] MEDS: diphenhydrAMINE Capsule 25 MG CAP PO PRN ×2 (05:43→09:51)
[2023-10-14 06:09] LABS: Hematocrit (blood only) 28.7 % (37.0-47.0); Hemoglobin 9.8 g/dl (12.0-16.0); Mean Corpuscular Hemoglobin 32.5 pg (25.0-34.0); Mean Corpuscular Hgb Conc 34.1 g/dL (32.0-36.0); Mean Platelet Volume 9.7 fL (9.4-12.4); Platelet Count 222 K/uL (130-400); RDW Coefficient of Variation 12.8 % (11.5-14.5); RDW Standard Deviation 44.5 fL (36.4-46.3); Red Blood Count 3.02 M/uL (4.20-5.40); White Blood Count 7.86 K/ul (4.8-10.8)
[2023-10-14 06:34] LABS: BUN Creatinine Ratio 15.4 (10-20); Calcium 9.6 mg/dl (8.6-10.3); Creatinine Clr Calc Pharmacy 73.3 ml/min; Est GFR (African American) 106.5 ml/min; Est GFR (Non-African American) 91.9 ml/min; Potassium 4.3 mmol/L (3.5-5.1)
[2023-10-14] MEDS: MAGNESIUM OXIDE 400 MG TAB PO SCH (08:44)
[2023-10-14] MEDS: CALCIUM CARBONATE 1250MG TAB PO SCH (08:44)
[2023-10-14] MEDS: ASCORBIC ACID 500 MG TAB PO SCH (08:44)
[2023-10-14] MEDS: LORazepam 0.5 MG TAB PO PRN (10:47)
--- NOTE | 2023-10-14 11:34 | Discharge Summary ---
Date of Service October 14, 2023 Admission HPI Per Admitting Provider This is a 68-year-old female presents chronic system back and bilateral leg pain and failing conservative course of nonoperative care is here for surgical invention. Principal Diagnosis Lumbar spinal stenosis with neurogenic claudication Discharge Data Allergies Allergy/AdvReac Type Severity Reaction Status Date / Time No Known Allergies Allergy Verified 10/10/23 06:36 Consultations 10/10/23 13:21 Consult Hospitalist Routine Procedures Performed Operation Date: 10/10/23 07:45 Actual Procedures p L2-L5 Decompression and Fusion, Spinal Cord Monitoring(Not Applicable) - Brannon Vincent DO Ordered Studies 10/10/23 [place] lumbar spine 2-3V Routine Hospital Course (1) Neurogenic claudication due to lumbar spinal stenosis: Patient underwent lumbar decompression fusion tolerated to obtain orthopedic for postoperative. Postop patient progressed appropriately. Pain well-controlled. CRISTAL drain decreased appropriately. Excellent strength testing. Simply discharged home. Discharge orders instructions found in chart for further review. Total Time Total Time Spent Total Time Spent (In Minutes): 20 minutes Discharge Plan Discharge Items Patient Disposition: Home - Self-Care Reason For Visit: Lumbar Region Spinal Stenosis with Radiculopathy, Discharge Diagnosis: Lumbar spinal stenosis with neurogenic claudication Activity: As commented below Non-emergency contact: Primary Care Provider Call non-emergency contact if: you have any medication questions Follow-up/Referrals: Gregorio Jaeger MD [Primary Care Provider] - Diet: Regular Addtl Attending Provider Instructions: ACTIVITY RECOMMENDATIONS: SELF CARE INSTRUCTIONS AFTER THORACIC/LUMBAR FUSIONS 1. You may walk to your tolerance. It is good exercise for your legs and back. Expect some back and intermittent leg aches and pains. 2. You may perform "counter-top" level activities (make a sandwich, aracely with a project, etc.). 3. No bending or lifting of more than 10 pounds or back twisting of any nature (roll like a log when turning in bed). 4. You may ride in a car for 20-30 minutes at a time. No driving until after your first visit with your doctor. 5. Frequent changes of position and restricting sitting to 30 minutes at a time will help limit the amount of back spasms and stiffness you may experience. 6. You may discontinue the use of ambulatory aids (cane, crutches, etc.) once your strength and confidence allow. 7. You may supervisor reactor fueling the shower and let water strike your incision when you arrive home at least once daily. Do not take a tub bath, sit in a hot tub or go into a swimming pool until after your first recheck in the office. SPECIAL CARE INSTRUCTIONS: VERY IMPORTANT TO READ AND REVIEW A. Your surgical incision has been closed with a cosmetic suture under the skin that will dissolve in about 6 weeks. In 14 days, you can use a pair of clean scissors and cut the suture that is left outside of the skin at the ends of your incision. 1. The small skin tapes can be removed 7 days after surgery if they have not fallen off by that point. 2. You may keep the wound open to air as much as possible to promote healing after post-op day number 5 unless told otherwise by your doctor. 3. If you think the wound looks like it is becoming infected (redness or worsening drainage) and/or you are experiencing fever, chill or worsening back pain and muscle spasms, contact the office so that we may evaluate you as soon as possible. B. Complications are uncommon, but please contact us if you have any signs or symptoms of: 1. wound infection (fever higher than 102.5 degrees F, redness, separation of wound, drainage, or increasing pain from the incision) 2. blood clots in legs (pain, swelling, redness and warmth in legs) 3. urinary tract infection (fever higher than 102.5 degrees F, burning upon urination or increased frequency of urination) 4. nerve problems (inability to walk on your toes or heels, numbness, loss of bowel or bladder control) 5. any other symptoms that concern you C. Please call the office at if you have any concerns or questions about your operation or recovery. D. No smoking! Smoking drastically decreases the chance of a solid fusion. E. Do not take any anti-inflammatory medications (Indocin, Advil, Motrin, Aspirin, Naprosyn, etc.) as these may inhibit the chance of a solid fusion. Tylenol is okay to take for pain. MANAGING PAIN AFTER SPINAL SURGERY 1. Narcotic medication is intended for short-term use and will be provided for surgical pain. Surgical pain usually lasts for a period of 4-6 weeks. Narcotic medication includes Percocet, Vicodin, Darvocet, Tylenol #3 or Lortab. 2. Longer-term pain is more appropriately treated with non-narcotic medication such as Tylenol ES. 3. Muscle spasm is not appropriately treated with narcotics. Muscle relaxers such as Soma, Flexeril or Skelaxin can be used along with Tylenol ES. 4. Remember that we all live with some "aches and pains". This is not unusual or uncommon after an injury or as we get older. a. Back pain is expected and may include muscle spasms for 4 to 6 weeks after surgery. The pain should gradually improve. If the pain worsens for no apparent reason, please contact the office. b. Intermittent leg pain may also be experienced and should not be concerned about unless it worsens for no apparent reason. If so, please contact the office. 5. We will provide appropriate medication within the normal guidelines of their prescribed use. We will also be very cautious and aware of potential abuse and extended duration of patients' medication needs. a. Pain medications are for your comfort and to assist with sleep and rest so that the tissue can heal. They are not provided in order to return to normal activity and should not be used through the day. To do so or worsening pain at night can result from ongoing tissue damage and development of tolerance to the prescribed medicine. 6. Please allow 2-3 days to process refills. Prescriptions will not be mailed but must be picked up at the office. FOLLOW UP VISIT: Keep your scheduled follow-up appointment. Any questions, please call the office at . Pending Studies at Discharge: No Stand-Alone Forms: [facility], Smoking Cessation Medications and NH Order Prescriptions: New tramadol 50 mg tablet 50 mg PO Q6H PRN (Reason: pain, moderate) Qty: 30 0RF oxycodone 5 mg tablet 5 mg PO Q6H PRN (Reason: pain) Qty: 30 0RF Continued multivitamin Tablet 1 tab PO QAM magnesium 500 mg Tablet 500 mg PO QAM atorvastatin 10 mg Tablet 10 mg PO HS calcium carbonate [Calcium 600] 600 mg calcium (1,500 mg) Tablet 600 mg PO QAM alprazolam 0.25 mg Tablet 0.25 mg PO HS ascorbic acid (vitamin C) [Vitamin C] 500 mg Tablet 500 mg PO QAM trazodone 100 mg Tablet 100 mg PO HS paroxetine HCl 40 mg Tablet 40 mg PO HS Discharge Orders: Discharge Order (Routine); Ordered 10/14/23 Ordered By: Brannon Vincent Admission Data Admit Date/Time: 10/10/23 10:19 Attending Provider: Brannon Vincent Admit Provider: Brannon Vincent Primary Care Provider: Gregorio Jaeger Other Providers: Lori Robison
--- NOTE | 2023-10-14 11:39 | Hospitalist Progress Note ---
Date of Service October 14, 2023 Assessment & Plan (1) S/P spinal surgery: (2) Neurogenic claudication due to lumbar spinal stenosis: Plan: Acute blood loss anemia Post op day#4 S/P L1-L5 decompression and fusion by Dr Melisa ODONNELL#300ml Pain management per ortho, improved Wound management per ortho PT/OT as appropriate DVT prophylaxis per ortho Incentive spirometry Monitor H&H for acute blood loss anemia, pre-op Hgb: 13, hgb stable at 9.8 today on discharge Continue to monitor after discharge. (3) Hyperlipidemia: Plan: Continue atorvastatin (4) Anxiety and depression: Plan: Continue paroxetine, trazodone Hold alprazolam currently while on other pain medications Ativan ordered per primary team Continue home medications after discharge Diet: Regular DVT Prophylaxis: per primary service Dispo: per primary service Thank you for this consultation. We will follow the patient with you during their hospital stay. You can reach a member of the [facility] Team 09/04 via [employer] Admission and Anticipated Discharge Date Admission Date: October 10, 2023 Subjective Pt seen with family at bedside. Initially was going for a walk with her walker. Notes improved pain. Passing gas, had BM. Review of Systems Review of Systems: All systems reviewed & are unremarkable except as noted in Subjective Physical Exam Physical Exam: General: Alert, oriented Psych: appropriate mood and affect Neuro: grossly intact, able to ambulate with a walker HEENT: NC/AT CV: RRR Resp: Breath sounds clear bilaterally, no increased effort of breathing. Abdomen: Soft, nontender, nondistended. Extremities: able to ambulate with a walker Results & Data Results & Data Vital Signs (Past 12 Hours) Vital Signs Temp Pulse Pulse Resp BP Pulse Ox O2 Del Method 10/14/23 11:35 37.1 C 58 L 62 14 108/68 93 10/14/23 07:15 37.1 C 62 14 108/68 93 Room Air
== END 2023-10-14 12:38 | disposition home or self-care (01) | DRG 454 ==
LOC: ASU 06:13 → 3N 10:19 → SUATTDRO 10:19